=== PATIENT | female | born 1970 | race Two or more races ===

== ENCOUNTER → 2016-06-21 | Outpatient (CLI) | payer BC ==
--- NOTE | ~2016-06-21 | MY11 ---
[facility] A Service of [facility] / [facility] RADIOLOGY TEXT RESULTS PATIENT: EDUARDO FERNANDEZ LOCATION: [facility] : 66 UNIT #: [id number] AGE: [address]: ANIKET FORD APRN SEX: F ORDER DR: [id number] [facility] [address] [facility] [place], [place] [address] [id number] O MR#: [id number] #: [id number] NAME: EDUARDO FERNANDEZ : 1970 SEX: F STUDY DATE/TIME: 06/21/2016 8:34 UNIT: [facility] ROOM: STUDY DESCRIPTION: MY Mammogram Screening Dig Ben Attending Physician: Micha Ford Aprn Referring Physician: Micha Ford Aprn Ordering Physician: Micha Ford Aprn Primary Care Physician: Micha Ford Aprn MEDICAL IMAGING REPORT This report is preliminary unless electronic signature is present EXAM Bilateral digital screening mammogram with CAD INDICATION Routine screening. No current complaints. No family history of breast cancer. COMPARISON 07/30/2014. FINDINGS MLO and CC digital views of each breast were obtained. The exam was reviewed with an FDA-approved CAD device. The breasts are heterogenously dense. There are no masses or abnormal calcifications. IMPRESSION No change. No evidence of malignancy. Patients over the age of 40 are entered into a reminder system with target due date for the next mammogram. A result letter will also be sent to the patient. BIRADS: 1 Negative Dictated by... Prasanna Omalley M.D. THIS IS AN ELECTRONICALLY VERIFIED REPORT Prasanna Omalley M.D. at 06/21/2016 1:53 PM TOSHA/lauren TD: 06/21/2016 11:09 [facility] A Service of [facility] / [facility] RADIOLOGY TEXT RESULTS PATIENT: EDUARDO FERNANDEZ LOCATION: [facility] : 66 UNIT #: [id number] AGE: [address]: ANIKET FORD APRN SEX: F ORDER DR: JOB #: [id number] MEDICAL IMAGING REPORT Page 1 of 1 COPY
== END | disposition home or self-care (01) ==
LOC: CWCC 08:20
DX: Z12.31 Encounter for screening mammogram for malignant neoplasm of breast (principal)
CPT/HCPCS: G0202